=== PATIENT | female | born 1945 | race Caucasian/White ===

== ENCOUNTER → 2025-03-23 01:07 | Outpatient (CLI) | payer MEDICARE, SELFPAY ==
--- NOTE | 2025-03-23 08:15 | DI.RAD_ITS ---
Exam(s) XR FOOT RT COMPLETE EXAM: XR FOOT RT COMPLETE CLINICAL HISTORY: Right foot pain,m79.671. TECHNIQUE: 2D digital imaging was performed. COMPARISON: No exams were available for comparison FINDINGS: 3 views No evidence of fracture nor diastasis of the Lisfranc joint. There are mild degenerative changes at the great toe metatarsophalangeal joint. There is a calcification evident in the soft tissues just medial to the head of the great toe metatarsal, this calcification measuring 7 mm by 3 mm. This does not have the appearance of an acute fracture fragment. On the lateral view there is small osteophytic density the discs off the dorsal aspect of the distal talus. Possible avulsion injury at this level. There is no pes planus. No osseous lesions nor erosions. There is a large inferior calcaneal spur and enthesophyte and there is calcification in the plantar fascia approximately 1 cm anterior to the tip of the plantar spur. Posteriorly there is a small enthesophyte on the posterior Achilles insertion site on the posterior calcaneus. No significant osseous lesions nor erosions evident. IMPRESSION: Multilevel findings as described above. Correlation with site of tenderness is recommended. There is calcification in the plantar fascia on this side; not seen on the opposite-left side. DATA REPOSITORY: RADIATION DOSE DELIVERED:
--- NOTE | 2025-03-23 08:15 | DI.RAD_ITS ---
Exam(s) XR FOOT LT COMPLETE EXAM: XR FOOT LT COMPLETE CLINICAL HISTORY: Left foot pain,m79.672. TECHNIQUE: 2D digital imaging was performed. COMPARISON: CR XR FOOT RT COMPLETE from 03/23/2025 FINDINGS: 3 views No evidence of fracture nor diastasis of the Lisfranc joint. There are mild degenerative changes in the great toe metatarsophalangeal joint. No osseous lesions nor erosions evident. Some vascular calcification is noted distally in the foot. There is no pes planus but there is a large inferior calcaneal spur evident. There is also an enthesophyte on the posterior a Achilles attachment site level of the calcaneus. Similar to the opposite side. No obvious soft tissue swelling. IMPRESSION: No acute osseous findings in the left foot. Other findings as above.. DATA REPOSITORY: RADIATION DOSE DELIVERED:
== END ==
LOC: DI 01:07
PROVIDERS: PCP Family Medicine; Visit Provider Podiatrist
DX: M79.671 Pain in right foot (principal); M79.672 Pain in left foot; L60.0 Ingrowing nail; M20.41 Other hammer toe(s) (acquired), right foot; M20.42 Other hammer toe(s) (acquired), left foot
CPT/HCPCS: 99203; 73630

== ENCOUNTER → 2025-04-04 12:51 | Outpatient (BNVA) | payer MEDICARE, SELFPAY | PROVIDERS: PCP Family Medicine; Referring Provider Family Medicine; Visit Provider Podiatrist | DX: M79.671 Pain in right foot (principal); M79.672 Pain in left foot; I73.89 Other specified peripheral vascular diseases | CPT/HCPCS: 93922 ==